=== PATIENT | male | born 2000 | race Caucasian/White ===

== ENCOUNTER 2022-01-25 18:01 | Emergency (ER) | payer MEDICAID, SELFPAY ==
[2022-01-25 18:24] VITALS: BP 144/86; PULSE 91; RESP 16; TEMP 36.7; O2SAT 100; BMI 35.6
--- NOTE | 2022-01-25 19:48 | ED.GENADULT ---
HPI - General Adult General Chief complaint: Unspecified Complaint, Adult Stated complaint: Stuffy Nose Time Seen by Provider: 01/25/22 19:41 Source: patient History of Present Illness HPI narrative: This 21-year-old male comes in reporting some nasal congestion. He does not have any cough for sore throat and does not report any shortness of breath. He states that it feels more like allergies and does not feel that he has an upper respiratory infection. He has not taken any medications for this. Related Data Previous Rx's Medication Instructions Recorded fluticasone propionate 50 1 spray INTRANASAL DAILY #16 g 01/25/22 mcg/actuation nasal spray,suspension (Flonase Allergy Relief) Allergies Allergy/AdvReac Type Severity Reaction Status Date / Time No Known Drug Allergies Allergy Verified 01/25/22 18:29 Review of Systems Status of ROS: Reports: 10 or more systems reviewed and unremarkable except as noted in History and below Const: Denies: fever or chills Eyes: Denies: change in vision ENMT: Denies: throat pain, neck pain, throat swelling, difficulty swallowing, ear pain or nasal congestion Cardio: Denies: chest pain, palpitations, shortness of breath with exertion or shortness of breath when lying down Resp: Denies: shortness of breath, cough or chest congestion GI: Denies: abdominal pain, nausea, vomiting, diarrhea or difficulty swallowing : Denies: painful urination, urinary frequency or blood in urine Musculo: Denies: back pain, neck pain, extremity pain or extremity swelling Integ/Breast: Denies: rash or itching Neuro: Denies: headache, numbness in extremities, weakness in extremities or dizziness Psych: Denies: anxiety or suicidal ideation Endo: Denies: excessive urination or excessive thirst Cyrus/Lymph: Denies: easy bruising, easy bleeding or enlarged lymph nodes Allergy/Immuno: Denies: hives, throat swelling or tongue swelling Exam Const: Vital Signs, click to edit/add: Vital Signs - 24 hr 01/25/22 18:24 Temperature 98.1 F Pulse Rate [Right Radial] 91 Respiratory Rate 16 Blood Pressure [Ri ght Upper Arm] 144/86 H Pulse Oximetry 100 Common normals: no apparent distress and oriented x3 General appearance: cooperative and comfortable Orientation/consciousness: Yes awake HENMT: Common normals: normocephalic and external nose normal Head and scalp: normal to inspection and normocephalic Face and sinus: normal facial exam Nose: external nose normal Mouth: oral and palatal mucosa normal Eye: Common normals: PERRL and EOMs intact bilaterally General eye: normal appearance of both eyes Visual acuity: acuity normal Alignment: alignment normal Pupil: PERRL Neck & C-Spine: Common normals: full ROM General: normal visual inspection Cervical spine: cervical ROM normal Lymph: Lymphatic: no lymphadenopathy noted Chest: Common normals: inspection of chest normal Resp: Common normals: normal respiratory effort, no use of accessory muscles and clear to auscultation bilaterally Effort & inspection: able to speak in complete sentences Auscultation: clear to auscultation bilaterally Cardio: Common normals: regular rate, regular rhythm, no murmurs and peripheral pulses 2+ throughout Rate: regular rate Rhythm: regular rhythm Peripheral pulses: pulses 2+ throughout GI: Common normals: Normal to inspection, nondistended, normoactive bowel sounds present and non-tender : Common normals: no CVA tenderness Bladder/kidney exam: no CVA tenderness Back & Pelvis: Common normals: no CVA tenderness and thoracic and lumbar spine normal to inspection Thoracic spine/upper back: normal to inspection Lumbar spine/lower back: normal to inspection Extremity: Common normals: normal to inspection and full ROM Neuro: Common normals: oriented x3, CN's II-XII intact bilaterally and no focal motor deficits Sensorium/orientation: awake Speech: speech normal Psych: Common normals: mental status grossly normal Skin: Common normals: no rashes or lesions noted and skin turgor normal General skin exam: no rashes or lesions noted and turgor normal Course Vital Signs Vital signs: Initial Vital Signs Temperature 98.1 F 01/25/22 18:24 Temperature Source Temporal Artery Scan 01/25/22 18:24 Pulse Rate 91 01/25/22 18:24 Pulse Rhythm 01/25/22 18:24 Respiratory Rate 16 01/25/22 18:24 Blood Pressure 144/86 H 01/25/22 18:24 Blood Pressure Mean 105 01/25/22 18:24 Blood Pressure Position Sitting 01/25/22 18:24 Pulse Oximetry 100 01/25/22 18:24 Oxygen Delivery Method 01/25/22 18:24 Vital Signs Temperature 98.1 F 01/25/22 18:24 Pulse Rate 91 01/25/22 18:24 Respiratory Rate 16 01/25/22 18:24 Blood Pressure 144/86 H 01/25/22 18:24 Pulse Oximetry 100 01/25/22 18:24 Temperature 98.1 F 01/25/22 18:24 Pulse Rate 91 01/25/22 18:24 Respiratory Rate 16 01/25/22 18:24 Blood Pressure 144/86 H 01/25/22 18:24 Pulse Oximetry 100 01/25/22 18:24 Medical Decision Making MDM Narrative Medical decision making narrative: This patient comes in reporting nasal congestion it is likely due to allergies. He is not exhibiting any signs of infection. No further testing is warranted at this time. I did discuss medications that are typically used to treat these symptoms including anti histamine and nasal steroid. I did provide prescription for a nasal steroid. The antihistamine such as Eden, Zyrtec, and Claritin are also [id number] and can be used as needed and directed. Discharge Plan Discharge Clinical Impression: Nasal congestion Patient Disposition: Home, Self-Care Condition: Stable Additional Instructions: Nasal congestion due to allergy reaction. Use [id number] medicines such as Eden, Claritin, or Zyrtec as needed and directed. Use a nasal spray also as instructed. Follow up with MD or return if worsening. Prescriptions: New fluticasone propionate [Flonase Allergy Relief] 50 mcg/actuation spray,suspension 1 spray intranasal DAILY Qty: 16 2RF Rx Instructions: administer into each nostril Follow Up/Referrals: Carl Sosa MD [Primary Care Provider] - Stand Alone Forms: [employer] Info Instructions
== END 2022-01-25 20:11 | disposition home or self-care (01) ==
LOC: ED 20:03
PROVIDERS: Emergency Provider Emergency Medicine Emergency Medical Services; PCP Family Medicine
DX: R09.81 Nasal congestion (principal)
CPT/HCPCS: 99282; 99284

== ENCOUNTER 2023-02-11 20:59 | Outpatient (CLI) | payer MEDICAID, SELFPAY ==
--- NOTE | 2023-02-19 16:04 | W.PM.SLEEP ---
Sleep Study Details Details Interpreting Provider: Priscila Date of Sleep Study: 02/11/23 Sleep Study Details: STUDY TYPE:? Hospital-based with CPAP titration ? BMI:? 35.6 ORDERING PROVIDER:? Priscila INDICATION:? Concerns about sleep apnea ? SLEEP SUMMARY:? Total sleep time 337 minutes, efficiency 86.3, arousal index 34.5 RESPIRATORY SUMMARY:? Mean oxygen awake 96, asleep 94, minimum 86 3 minutes oxygen between 80 and 88% AHI 52.1, RDI 92 no supine REM sleep was seen in the diagnostic portion of the study CPAP titration was performed to a pressure of 7 which included 44.5 minutes of supine REM sleep and decreased AHI to 1.3 PERIODIC LIMB MOVEMENTS OF SLEEP:? None CARDIAC:? Awake 73 asleep 62 no arrhythmias noted IMPRESSION:? Severe obstructive sleep apnea. Successful CPAP Pap titration to a pressure of 7. RECOMMENDATION: Would initiate CPAP AutoSet pressure 5 to 15.
== END 2023-02-11 21:00 | disposition home or self-care (01) ==
LOC: SLEEP 21:00
PROVIDERS: PCP Family Medicine; Visit Provider Otolaryngology
DX: G47.33 Obstructive sleep apnea (adult) (pediatric) (principal)
CPT/HCPCS: 95811